=== PATIENT | male | born 1995 | race Native Hawaiian/Other Pacific Islander ===

== ENCOUNTER 2017-04-07 20:57 | Inpatient (IN) | payer OTHER ==
[~2017-04-07] VITALS: Ht 182.9 cm; Wt 80.7 kg
[2017-04-07 21:07] VITALS: BP 136/59; TEMP 99.2
[2017-04-07 21:29] LABS: PLATELET COUNT 167 K/uL (142-355)
[2017-04-07 21:49] LABS: POTASSIUM 4.1 mmol/L (3.6-5.2); SODIUM 121 mmol/L (136-145)
[2017-04-07 22:34] VITALS: BP 130/63
[2017-04-07 23:14] VITALS: BP 134/65
[2017-04-07 23:50] VITALS: BP 86/48
[2017-04-07 23:53] VITALS: BP 84/62
[2017-04-08] VITALS (17 sets, daily range): BP systolic 81–122; BP diastolic 47–78; TEMP 97.7–98.8; Ht 182.9 cm; Wt 80.7 kg
[2017-04-08 01:26] LABS: POTASSIUM 2.9 mmol/L (3.6-5.2); SODIUM 131 mmol/L (136-145)
[2017-04-08 05:31] LABS: POTASSIUM 3.4 mmol/L (3.6-5.2); SODIUM 138 mmol/L (136-145)
[2017-04-08 08:48] LABS: POTASSIUM 3.4 mmol/L (3.6-5.2); SODIUM 139 mmol/L (136-145)
[2017-04-09] VITALS: BP 105/48; TEMP 98.8
[2017-04-09 04:00] VITALS: BP 109/54; TEMP 98.9
[2017-04-09 06:35] LABS: PLATELET COUNT 146 K/uL (142-355)
[2017-04-09 06:54] LABS: POTASSIUM 4.2 mmol/L (3.6-5.2); SODIUM 134 mmol/L (136-145)
[2017-04-09 08:16] VITALS: BP 113/60; TEMP 98.3
[2017-04-09 12:00] VITALS: BP 114/52; TEMP 98.4
[2017-04-09 16:00] VITALS: BP 112/58; TEMP 98
[2017-04-09 20:00] VITALS: BP 105/55; TEMP 99.2
[2017-04-09 20:08] LABS: POTASSIUM 4.2 mmol/L (3.6-5.2); SODIUM 134 mmol/L (136-145)
[2017-04-10 00:43] VITALS: BP 110/68; TEMP 99.3
[2017-04-10 04:00] VITALS: BP 103/58; TEMP 98.8
[2017-04-10 06:30] LABS: PLATELET COUNT 145 K/uL (142-355)
[2017-04-10 07:12] LABS: POTASSIUM 3.2 mmol/L (3.6-5.2); SODIUM 137 mmol/L (136-145)
[2017-04-10 08:00] VITALS: BP 106/63; TEMP 97.3
[2017-04-10] MEDS ORDERED: INSUINJP SC (10:26)
[2017-04-10] MEDS ORDERED: PREVPAC OR (10:26)
[2017-04-10] MEDS ORDERED: NOVOLOG100 MG/ML SC (10:26)
== END 2017-04-10 10:00 | disposition home or self-care (01) | DRG 638 ==
LOC: ED 20:57 → ICU 22:15 → MED/SURG 22:15
PROVIDERS: Emergency Medicine; Specialist
DX: E10.10 Type 1 diabetes mellitus with ketoacidosis without coma (principal); E87.2 Acidosis; A04.8 Other specified bacterial intestinal infections; E87.6 Hypokalemia
CPT/HCPCS: 36415; 36600; 80048; 80053; 81000; 81002; 82805; 82948; 82962; 83036; 83735; 84100; 84443; 85027; 86318; 96365; 96372; 99284; J1650; J1815; J2405; J3490

== ENCOUNTER 2017-04-16 08:22 | Outpatient (CLI) | payer OTHER ==
[~2017-04-16 08:22] MED LIST: INSUINJP SC; NOVOLOG100 MG/ML SC; PREVPAC OR
== END 2017-04-16 09:30 | disposition home or self-care (01) ==
LOC: US 08:22
DX: E10.65 Type 1 diabetes mellitus with hyperglycemia (principal); E04.8 Other specified nontoxic goiter

== ENCOUNTER 2022-05-30 09:00 | Outpatient (CLI) | payer OTHER | END 2022-05-30 19:19 | disposition home or self-care (01) | LOC: RAD 09:00 | PROVIDERS: ATTEND Orthopaedic Surgery | DX: M25.562 Pain in left knee (principal) ==